=== PATIENT | male | born 1995 | race Caucasian/White ===

== ENCOUNTER 2023-01-04 08:36 | Emergency (ER) | payer OTHER ==
[~2023-01-04] VITALS: Ht 185.4 cm; Wt 113.6 kg
[2023-01-04 09:00] VITALS: BP 157/96
[2023-01-04 09:23] LABS: APPEARANCE,URINE HAZY (CLEAR); BILIRUBIN,URINE SMALL (NEGATIVE); GLUCOSE, URINE (UA) TRACE mg/dL (NEGATIVE); KETONES,URINE NEGATIVE (NEGATIVE); LEUKOCYTE ESTERASE ,URINE LARGE (NEGATIVE); NITRATE,URINE POSITIVE (NEGATIVE); OCCULT BLOOD,URINE MODERATE (NEGATIVE); PROTEIN,URINE 100-200,SEE CONFIRM mg/dL (NEGATIVE); SPECIFIC GRAVITIY, URINE 1.035 (1.003-1.030)
[2023-01-04 09:53] LABS: SULFOSALICYLIC ACID,URINE 2+ (Negative)
[2023-01-04 09:55] LABS: BACTERIA,URINE Few /HPF (None Seen); SQUAMOUS EPITHELIAL CELL,UR Few /LPF (None Seen)
[2023-01-04] MEDS ORDERED: CefTRIAXone SODIUM 1 GM/VIAL IM ONE (11:00)
[2023-01-04] MEDS ORDERED: LIDOCAINE/PF 1% 2 ML VIAL IM ONE (11:00)
[2023-01-04] MEDS ORDERED: AZITHROMYCIN 500 MG TABLET PO ONE (11:00)
[2023-01-04] MEDS ORDERED: KETOROLAC TROMETHAMINE 60 MG/2 ML VIAL IM ONE (11:00)
[2023-01-04] MEDS ORDERED: SULF-261 PO (11:47)
[2023-01-04] MEDS ORDERED: DOXY-354 PO (11:48)
== END 2023-01-04 12:37 | disposition home or self-care (01) ==
LOC: EMS 08:36
DX: N39.0 Urinary tract infection, site not specified (principal); N45.1 Epididymitis
CPT/HCPCS: 99285; 81001; 87086; 87186; 76870; 87491; 87591; 96372; J0696; J1885; J3490; Q9967; 81002